=== PATIENT | male | born 1985 | race Caucasian/White ===

== ENCOUNTER 2019-10-20 15:40 | Outpatient (CLI) | payer OTHER, SELFPAY ==
--- NOTE | ~2019-10-20 | MR_ITS ---
EXAMINATION: MR cervical spine wo con EXAM DATE: 10/20/2019 17:26 INDICATION: Right-sided neck pain, right hand numbness. TECHNIQUE: Multi-sequential, multiplanar MR images of the cervical spine were obtained without contra st. Axial T2, axial T2 MERGE sequence. Sagittal T1, T2, T2 fat saturation images also obtained. Com parison is made to prior examination from 04/16/2012. FINDINGS: There is mild mid cervical disc disease from C3 through C6. The vertebral bodies are align ed in the AP dimension. The spinal cord signal intensity and intrinsic morphology is normal. Cervicom edullary junction is normal in appearance. There are no suspicious marrow signal abnormalities. Chase sally soft tissue is unremarkable. Level by level evaluation: C2-C3: Disc does not extend beyond the endplate margin. Uncovertebral joint arthropathy: None. Facet joint arthropathy: Mild bilateral. Neural foraminal stenosis: No stenosis. Central canal stenosis: No stenosis. C3-C4: There is a mild diffuse disc bulge. Uncovertebral joint arthropathy: Mild to moderate bilateral. Facet joint arthropathy: Mild bilateral. Neural foraminal stenosis: Mild to moderate right, mild left. Central canal stenosis: Mild. C4-C5: There is a minimal diffuse disc bulge. Uncovertebral joint arthropathy: Mild bilateral. Facet joint arthropathy: Mild bilateral. Neural foraminal stenosis: No stenosis. Central canal stenosis: No stenosis. C5-C6: There is a mild diffuse disc bulge. Uncovertebral joint arthropathy: Mild bilateral. Facet joint arthropathy: Mild bilateral. Neural foraminal stenosis: No stenosis. Central canal stenosis: Minimal. C6-C7: There is a minimal diffuse disc bulge. Uncovertebral joint arthropathy: Mild left. Facet joint arthropathy: Mild bilateral. Neural foraminal stenosis: No stenosis. Central canal stenosis: No stenosis. C7-T1: Disc does not extend beyond the endplate margin. Uncovertebral joint arthropathy: None. Facet joint arthropathy: Mild bilateral. Neural foraminal stenosis: No stenosis. Central canal stenosis: No stenosis. IMPRESSION: 1. Minimal interval progression in mild cervical spondylosis. No significant stenosis. Reviewed, dictated and finalized at location B. M [facility] IMPRESSION: 1. Minimal interval progression in mild cervical spondylosis. No significant s tenosis.
== END 2019-10-20 15:41 ==
PROVIDERS: PCP Internal Medicine Geriatric Medicine; Visit Provider Internal Medicine Geriatric Medicine
DX: M47.22 Other spondylosis with radiculopathy, cervical region (principal)
CPT/HCPCS: 72141

== ENCOUNTER 2019-10-28 09:25 | Outpatient (CLI) | payer OTHER, SELFPAY ==
--- NOTE | 2019-10-28 11:00 | NEURO_ITS ---
Patient Number: [id number] Impression: # Complains of right upper extremity pain with numbness. # Normal nerve conduction study including F-waves. # Normal needle/EMG exam. # Clinical correlation recommended. Nerve Conduction Studies Anti Sensory Summary Table Stim Site NR Peak (ms) P-T Amp (?V) Site1 Site2 Delta-P (ms) Dist (cm) Robert (m/s) Right Median Anti Sensory (2-3nd Digit) Wrist 2.6 77.8 Wrist 2-3nd Digit 2.6 14.0 54 Wrist 2.6 72.5 Wrist 2-3nd Digit 2.6 14.0 54 Right Radial Anti Sensory (Base 1st Digit) Wrist 2.1 15.5 Wrist Base 1st Digit 2.1 0.0 Right Ulnar Anti Sensory (5th Digit) Wrist 2.3 49.7 Wrist 5th Digit 2.3 14.0 61 Motor Summary Table Stim Site NR Onset (ms) O-P Amp (mV) Site1 Site2 Delta-0 (ms) Dist (cm) Robert (m/s) Right Median Motor (Abd Poll Brev) Wrist 3.4 4.3 Elbow Wrist 5.4 33.0 61 Elbow 8.8 3.7 Right Ulnar Motor (Abd Dig Minimi) Wrist 2.4 7.2 A Elbow Wrist 5.4 34.0 63 A Elbow 7.8 6.3 F Wave Studies NR F-Lat (ms) L-R F-Lat (ms) Right Median (Mrkrs) (Abd Poll Brev) 30.10 Right Ulnar (Mrkrs) (Abd Dig Min) 29.71 EMG Side Muscle Nerve Root Ins Act Fibs Amp Dur Recrt Comment Right 1stDorInt Ulnar C8-T1 Nml Nml Nml Nml Nml Right Ext Indicis Radial (Post Int) C7-8 Nml Nml Nml Nml Nml Right Ext Digitorum Radial (Post Int) C7-8 Nml Nml Nml Nml Nml Right BrachioRad Radial C5-6 Nml Nml Nml Nml Nml Right PronatorTeres Median C6-7 Nml Nml Nml Nml Nml Right Abd Poll Brev Median C8-T1 Nml Nml Nml Nml Nml Right ABD Dig Min Ulnar C8-T1 Nml Nml Nml Nml Nml Right Biceps Musculocut C5-6 Nml Nml Nml Nml Nml Right Triceps Radial C6-7-8 Nml Nml Nml Nml Nml Right Deltoid Axillary C5-6 Nml Nml Nml Nml Nml MTDD
== END 2019-10-28 09:26 | disposition home or self-care (01) ==
PROVIDERS: Visit Provider Internal Medicine Geriatric Medicine
DX: R20.2 Paresthesia of skin (principal)
CPT/HCPCS: 95886; 95909

== ENCOUNTER 2022-08-29 08:53 | Outpatient (CLI) | payer OTHER, SELFPAY ==
--- NOTE | 2022-08-29 | ECHO_ITS ---
Patient Info Name: Cayden Jeffrey Age: 37 years : 1985 Gender: Male Ht: 73 in Wt: 230 lbs BSA: 2.34 m2 HR: 49 bpm BP: 126 / 78 mmHg Heart Rhythm: Sinus Rhythm, Bradycardia Technical Quality: Good Exam Date: 08/29/2022 9:43 AM Exam Location: [facility] Patient Status: Outpatient Admit Date: 08/29/2022 Staff Ordering Physician: Christian, David Lehman MD Petroleum Sampler: Jannie Hernandez RDCS Attending Provider: Christian, David Lehman MD Referring Physician: Christian PORTILLO; Exam Type: CA echo doppler color flow Study Info Indications I49.9 - Cardiac arrhythmia, unspecified Complete two-dimensional, color flow and Doppler transthoracic echocardiogram is performed. Summary 1. Complete two-dimensional, color flow and Doppler transthoracic echocardiogram is performed. 2. Left ventricular chamber dimension is normal. 3. Left ventricular systolic function is normal, estimated at 55-60%. 4. The left ventricular diastolic function is normal. 5. Global longitudinal strain is normal at -21 %. 6. Right ventricular systolic function is normal. 7. There is mild mitral valve regurgitation. 8. There is mild tricuspid valve regurgitation. Left Ventricle Left ventricular chamber dimension is normal. Left ventricular systolic function is normal, estimated at 55-60%. There is no increased left ventricular wall thickness. The left ventricular diastolic function is normal. Global longitudinal strain is normal at -21 %. Right Ventricle Right ventricular chamber dimension is normal. Right ventricular systolic function is normal. Left Atria Left atrial chamber dimension is normal. Right Atria Right atrial chamber dimension is normal. Atrial Septum Intact interatrial septum visualized by color flow imaging. Aortic Valve The aortic valve is probable trileaflet. There is no aortic valve stenosis. There is no aortic valve regurgitation. Pulmonic Valve The pulmonic valve is normal. Mitral Valve The mitral valve has normal leaflets. There is no mitral valve stenosis. There is mild mitral valve regurgitation. Tricuspid Valve There is no significant tricuspid valve stenosis. There is mild tricuspid valve regurgitation. Pericardium/Pleural There is no pericardial effusion. Aorta The aortic root size at the sinus of Valsalva is normal. Left Ventricular Outflow Tract Name Value Normal LVOT 2D LVOT Diameter 2.1 cm LVOT Doppler LVOT Peak Gradient 4 mmHg LVOT Mean Gradient 2 mmHg LVOT VTI 25 cm LVOT VTI/AV VTI Ratio 1.1 LVOT Stroke Volume 84 ml LVOT CO 4.1 l/min LVOT CI 1.8 l/min/m2 Pulmonic Valve Name Value Normal RVOT Doppler
--- NOTE | 2022-08-29 | ECG_ITS ---
Measurements Intervals [place] Rate: 50 P: 40 NE: 160 QRS: -2 QRSD: 100 T: 16 QT: 420 QTc: 384 Interpretive Statements SINUS BRADYCARDIA BASELINE ARTIFACT- I, III, AVL BORDERLINE ECG NO PREVIOUS ECG AVAILABLE FOR COMPARISON Electronically Signed On 08-29-2022 9:41:29 SOFTWARE VERIFICATION ENGINEER by Chino Dueñas D.O.
--- NOTE | 2022-08-31 14:57 | WPDHOLTEREM ---
Holter/Event Monitor Holter/Event Monitor Date of procedure: 08/29/22 Holter/Event Procedure: 48 Hr Holter Monitor Diagnosis: Irregular heart beat Indications: Irregular heart beat Image/Tracing Quality: Adequate. Total analysis time is 47 hours and 59 minutes. Findin. Predominant rhythm is sinus rhythm. The average heart rate is 67BPM. The minimum heart rate was 42BPM, and the maximum heart rate was 119BPM. 2. No atrial fibrillation, pauses, or heart blocks. 3. No ventricular ectopy. 4. Supraventricular ectopy consisted of 47 beats (burden of <0.1%). Supraventricular ectopy consisted of atrial couplets, PACs. 5. There were 9 patient reported events of chest pain , chest tightness , and flutter that all correlated to sinus rhythm. Conclusion: 1. Sinus rhythm. The average heart rate is 67BPM. The minimum heart rate was 42BPM (sinus bradycardia), and the maximum heart rate was 119BPM (sinus tachycardia). 2. No atrial fibrillation, pauses, or heart blocks. 3. No ventricular ectopy. 4. Supraventricular ectopy consisted of 47 beats (burden of <0.1%). Supraventricular ectopy consisted of atrial couplets, PACs. 5. There were 9 patient reported events of chest pain , chest tightness , and flutter that all correlated to sinus rhythm.
== END 2022-08-29 08:54 | disposition home or self-care (01) ==
PROVIDERS: Visit Provider Internal Medicine Geriatric Medicine
DX: R00.1 Bradycardia, unspecified (principal); I08.1 Rheumatic disorders of both mitral and tricuspid valves
CPT/HCPCS: 93005; 93225; 93226; 93306